=== PATIENT | female | born 1995 | race Caucasian/White ===

== ENCOUNTER 2017-01-02 16:59 | Emergency (ER) | payer BC ==
[2017-01-02 17:15] VITALS: BP 126/73
--- NOTE | 2017-01-02 18:02 | UC ---
Complaint Female HPI - HPI Summary HPI Summary: Dysuria, frequency, burning, feels "like I've been punched in the crotch" with urination starting today. Has had similar symptoms in the past but they usually pass on their own. - History Of Current Complaint Chief Complaint: UCGU Stated Complaint: burning urination Time Seen by Provider: 01/02/17 17:33 Hx Obtained From: Patient Hx Last Menstrual Period: [id number] ?: No Onset/Duration: Gradual Onset, Lasting Hours Timing: Constant Severity Initially: Mild Severity Currently: Moderate Character: Burning Aggravating Factor(s): Urination - Allergies/Home Medications Allergies/Adverse Reactions: Allergies Allergy/AdvReac Type Severity Reaction Status Date / Time nuts Allergy Intermediate itching Uncoded 01/02/17 17:15 oral airway,burning throat PMH/Surg Hx/FS Hx/Imm Hx - Surgical History Surgical History: Yes Surgery Procedure, Year, and Place: t/a - Family History Known Family History: Positive: Hypertension - Social History Alcohol Use: Occasionally Substance Use Type: None Smoking Status (MU): Never Smoked Tobacco Review of Systems Constitutional: Negative Skin: Negative Eyes: Negative ENT: Negative Respiratory: Negative Cardiovascular: Negative Gastrointestinal: Negative Genitourinary: Dysuria, Hematuria, Urgency Motor: Negative Neurovascular: Negative Musculoskeletal: Negative Neurological: Negative Psychological: Negative All Other Systems Reviewed And Are Negative: Yes Physical Exam Triage Information Reviewed: Yes Appearance: Well-Appearing, No Pain Distress, Obese Vital Signs: Initial Vital Signs Temp 99.8 F 01/02/17 17:10 Pulse 78 01/02/17 17:10 Resp 18 01/02/17 17:10 BP 126/73 01/02/17 17:10 Pulse Ox 100 01/02/17 17:10 Vital Signs Reviewed: Yes Eye Exam: Normal Eyes: Positive: Conjunctiva Clear ENT Exam: Normal ENT: Positive: Normal ENT inspection, Hearing grossly normal, Pharynx normal, TMs normal Neck exam: Normal Respiratory Exam: Normal Respiratory: Positive: Chest non-tender, Lungs clear, Normal breath sounds, No respiratory distress, No accessory muscle use Cardiovascular Exam: Normal Cardiovascular: Positive: RRR, No Murmur Abdominal Exam: Normal Abdomen Description: Negative: CVA Tenderness (R), CVA Tenderness (L) Musculoskeletal Exam: Normal Neurological Exam: Normal Psychological Exam: Normal Skin Exam: Normal Complaint Female Dx - Differential Dx/Diagnosis Provider Diagnoses: UTI Discharge - Discharge Plan Condition: Stable Disposition: HOME Prescriptions: Nitrofurantoin Monohyd Macro [Macrobid] 100 mg PO BID #10 cap Patient Education Materials: Urinary Tract Infection in Women (ED) Referrals: Sal Lemons MD [Primary Care Provider] - If Needed
== END 2017-01-02 18:12 | disposition home or self-care (01) ==
LOC: UCEAST 16:59
DX: N39.0 Urinary tract infection, site not specified (principal); R31.9 Hematuria, unspecified; E66.9 Obesity, unspecified
CPT/HCPCS: 81002; 87086; 99212; G0463

== ENCOUNTER 2017-01-10 17:24 | Emergency (ER) | payer BC ==
[2017-01-10 17:37] VITALS: BP 133/79
--- NOTE | 2017-01-10 17:55 | UC ---
Complaint Female HPI - HPI Summary HPI Summary: pain and burning with urination recent had a uti and treated with MAcrobid with out resolve - History Of Current Complaint Chief Complaint: UCGU Stated Complaint: UTI Time Seen by Provider: 01/10/17 17:43 Hx Obtained From: Patient Hx Last Menstrual Period: Dec 2016 ?: No Onset/Duration: Gradual Onset, Lasting Days, Still Present Timing: Constant Severity Initially: Mild Severity Currently: Mild Character: Burning Aggravating Factor(s): Urination Associated Signs And Symptoms: Positive: Negative - Allergies/Home Medications Allergies/Adverse Reactions: Allergies Allergy/AdvReac Type Severity Reaction Status Date / Time nuts Allergy Intermediate itching Uncoded 01/10/17 17:31 oral airway,burning throat Home Medications: Home Medications Control 1 tab DAILY 01/10/17 [History] PMH/Surg Hx/FS Hx/Imm Hx Previously Healthy: Yes - Surgical History Surgical History: Yes Surgery Procedure, Year, and Place: t/a - Family History Known Family History: Positive: Hypertension - Social History Occupation: Employed Full-time Lives: With Family Alcohol Use: Occasionally Substance Use Type: None Smoking Status (MU): Never Smoked Tobacco - Immunization History Most Recent Influenza Vaccination: None Most Recent Tetanus Shot: UTD Most Recent Pneumonia Vaccination: None Review of Systems Constitutional: Negative Skin: Negative Eyes: Negative ENT: Negative Respiratory: Negative Cardiovascular: Negative Gastrointestinal: Negative Genitourinary: Dysuria Motor: Negative Neurovascular: Negative Musculoskeletal: Negative Neurological: Negative Psychological: Negative All Other Systems Reviewed And Are Negative: Yes Physical Exam Triage Information Reviewed: Yes Appearance: Well-Appearing, No Pain Distress, Well-Nourished Vital Signs: Initial Vital Signs Temp 98.7 F 01/10/17 17:33 Pulse 84 01/10/17 17:33 Resp 18 01/10/17 17:33 BP 133/79 01/10/17 17:33 Pulse Ox 98 01/10/17 17:33 Vital Signs Reviewed: Yes Eye Exam: Normal Eyes: Positive: Conjunctiva Clear ENT Exam: Normal ENT: Positive: Normal ENT inspection, Hearing grossly normal, Pharynx normal, TMs normal. Negative: Nasal congestion, Nasal drainage, Tonsillar swelling, Tonsillar exudate, Trismus, Muffled/hoarse voice Dental Exam: Normal Neck exam: Normal Neck: Positive: Supple, Nontender, No Lymphadenopathy Respiratory Exam: Normal Respiratory: Positive: Chest non-tender, Lungs clear, Normal breath sounds, No respiratory distress, No accessory muscle use Cardiovascular Exam: Normal Cardiovascular: Positive: RRR, No Murmur, Pulses Normal, Brisk Capillary Refill Abdominal Exam: Normal Abdomen Description: Positive: Nontender, No Organomegaly, Soft Bowel Sounds: Positive: Present Musculoskeletal Exam: Normal Musculoskeletal: Positive: Strength Intact, ROM Intact, No Edema Neurological Exam: Normal Neurological: Positive: Alert Psychological Exam: Normal Skin Exam: Normal Complaint Female Dx - Course Course Of Treatment: no growth on last urine culture, rx with doxycycline, use lubricant for sexual activity, increase fluids, urinate after intercourse, lab studies - Differential Dx/Diagnosis Differential Diagnosis/HQI/PQRI: Renal Colic, Urinary Tract Infection Provider Diagnoses: UTI, External vaginal irratation Discharge - Discharge Plan Condition: Stable Disposition: HOME Prescriptions: DOXYcycline CAP(*) [DOXYcycline 100MG CAP(*)] 100 mg PO BID #20 cap Patient Education Materials: Phenazopyridine (By mouth), Urinary Tract Infection in Women (ED), Dysuria (ED) Referrals: Sal Lemons MD [Primary Care Provider] - If Needed
[2017-01-14 14:15] LABS: Mycoplasma hominis Result Negative; Mycoplasma hominis Source URINE; Ureaplasma Source URINE; Ureaplasma parvum PCR Positive; Ureaplasma urealyticum PCR Negative
== END 2017-01-10 18:15 | disposition home or self-care (01) ==
LOC: UCEAST 17:24
DX: N39.0 Urinary tract infection, site not specified (principal); N89.8 Other specified noninflammatory disorders of vagina; Z11.3 Encounter for screening for infections with a predominantly sexual mode of transmission
CPT/HCPCS: 81003; 87086; 87491; 87591; 87798; 99212; G0463